=== PATIENT | male | born 1975 | race Caucasian/White ===

== ENCOUNTER 2021-08-21 20:55 | Emergency (ER) | payer BC, SELFPAY ==
[2021-08-21 20:57] VITALS: BP 149/90; PULSE 109; RESP 18; TEMP 36.1; O2SAT 97
[2021-08-21 21:26] LABS: Basophils Percent Auto 0.4 % (0.2-1.2); Eosinophils Absolute Auto 0.2 K/mm3 (0-0.3); Eosinophils Percent Auto 1.8 % (0-4.4); Hematocrit 45.2 % (42.0-52.0); Hemoglobin 15.4 g/dL (14.0-18.0); Immature Granulocyte Absolute 0.02 K/mm3 (0.00-0.031); Immature Granulocyte Percent A 0.2 % (0-0.5); Lymphocytes Absolute Auto 2.56 K/mm3 (0.9-3.2); Lymphocytes Percent Auto 24.9 % (18.3-44.2); Mean Corpuscular HGB Conc 34.1 g/dl (32-36); Mean Corpuscular Hemoglobin 31.3 pg (26-34); Mean Corpuscular Volume 91.9 fl (80-100); Mean Platelet Volume 8.9 fl (7.4-10.4); Monocytes Absolute Auto 0.7 K/mm3 (0.1-0.6); Monocytes Percent Auto 6.4 % (2.6-8.5); Neutrophils Absolute Auto 6.8 K/mm3 (1.3-6.7); Neutrophils Percent Auto 66.3 % (45.5-73.1); Platelet Count Result 246 k/mm3 (150-375); Red Blood Count 4.92 M/mm3 (4.6-6.20); Red Cell Distribution Width 13.1 % (11.5-14.5); White Blood Count 10.3 K/mm3 (4.5-10.0)
[2021-08-21] MEDS: SODIUM CHLORIDE 0.9% IV 1,000 ML 999 ML IV CONT (21:29)
[2021-08-21] MEDS: CLINDAMYCIN 600 MG/D5W 50 ML 600 MG/50 ML PIGGYBACK 100 MG IVPB (21:35)
[2021-08-21 21:38] VITALS: BP 101/54; PULSE 101; RESP 17; TEMP 37.6; O2SAT 97
[2021-08-21 21:38] LABS: Anion Gap 10 mmol/L (8-16); Blood Urea Nitrogen 10 mg/dL (9-20); Calcium 8.7 mg/dL (8.4-10.2); Carbon Dioxide 23 mmol/L (22-30); Chloride 101 mmol/L (98-107); Estimated CRCL calculation 133 ml/min; Estimated Glomerular Filt Rate > 60; Glucose 96 mg/dL (65-110); Potassium 3.5 mmol/L (3.4-5.0); Sodium 134 mmol/L (137-145)
--- NOTE | 2021-08-21 21:39 | ED.SKABFB ---
HPI - Skin/Abscess/Foreign Bdy General Chief complaint: Skin/Abscess/Foreign Body Stated complaint: bite to right arm Time Seen by Provider: 08/21/21 21:05 Source: patient Mode of arrival: ambulatory Limitations: no limitations History of Present Illness HPI narrative: Patient is a 46-year-old male complaining of redness and swelling in the right elbow x1 week. Patient states that pus came out in the area today. Patient cannot recall if it was a bug bite or a scratch that caused it. Patient denies any fever or chills. Patient denies any IV drug use. Related Data Allergies Allergy/AdvReac Type Severity Reaction Status Date / Time No Known Allergies Allergy Unknown Verified 08/21/21 21:06 Review of Systems Review of Systems: All systems reviewed & are unremarkable except as noted in HPI and below Constitutional: Constitutional: Denies body ache(s), Denies chills, Denies excessive sweating, Denies fatigue, Denies fever(s), Denies headache(s), Denies lethargy, Denies malaise, Denies weakness and Denies weight loss Eyes: Eyes: Denies blurry vision, Denies change in vision and Denies loss of vision ENT: Denies dizziness, Denies ear discharge, Denies headache(s), Denies lip swelling, Denies epistaxis, Denies nasal congestion, Denies neck pain, Denies throat swelling and Denies tongue swelling Cardiovascular: Cardiovascular: Denies chest pain, Denies chest pain at rest, Denies chest pain with activity, Denies diaphoresis, Denies rapid heart rate, Denies edema, Denies irregular heart rhythm, Denies lightheadedness, Denies palpitations, Denies dyspnea and Denies dyspnea on exertion Respiratory: Respiratory: Denies chest congestion, Denies cough, Denies hemoptysis, Denies dyspnea and Denies dyspnea on exertion Gastrointestinal: Gastrointestinal: Denies abdominal pain, Denies melena, Denies hematochezia, Denies diarrhea, Denies nausea, Denies vomiting and Denies hematemesis Musculoskeletal: Musculoskeletal: Denies abnormal gait, Denies deformity, Denies joint swelling, Denies limited range of motion, Denies neck pain and Denies numbness Neurologic: Denies Abnormal speech present, Denies abnormal gait, Denies confusion, Denies dizziness, Denies headache(s), Denies focal weakness, Denies loss of vision, Denies numbness, Denies Other visual disturbances, Denies Sensory deficit (Neuro) and Denies weakness Psychiatric: Psychiatric: Denies confusion, Denies depression, Denies auditory hallucinations, Denies homicidal ideation and Denies suicidal ideation Endocrine: Endocrine: Denies cold intolerance, Denies excessive sweating, Denies fatigue, Denies heat intolerance and Denies palpitations Hematologic/Lymphatic: Hematologic/Lymphatic: Denies easy bleeding and Denies easy bruising Allergic/Immunologic: Allergic/Immunologic: Denies lip swelling, Denies throat swelling and Denies tongue swelling PMFSH Comments Past medical history: None Family history: None Social history: Positive for smoker, occasional EtOH use, no drug use Exam Const: General: cooperative, healthy appearing, comfortable, no acute distress, well developed, alert and awake; No confusion Orientation/consciousness: oriented to person, oriented to place, oriented to time, patient oriented x3 and No confusion Limitations: no limitations HENMT: Head: normal to inspection, normocephalic and atraumatic Ears: hearing grossly normal bilaterally, TM normal on the right and TM normal on the left General nose exam: Normal external nose present, Normal nares present and No nasal discharge present Face and sinus: normal facial exam Mouth: Yes Normal oral and palatal mucosa present, Yes lip normal, Yes tongue normal and Yes oropharynx normal Throat: posterior oropharynx normal, tonsils normal and uvula midline Eyes: General: appearance normal, both eyes and all related structures Pupils: Equal, round and reactive pupils present EOM: EOMs intact bilaterally Neck: Neck: normal visual inspe
--- NOTE | 2021-08-21 23:00 | PC.NURSE ---
EDP Dr Villegas at bedside for I&D of abscess to right forearm.
[2021-08-21 23:15] VITALS: BP 116/81; PULSE 71; RESP 18; O2SAT 99
== END 2021-08-21 23:15 | disposition home or self-care (01) ==
PROVIDERS: Emergency Provider Emergency Medicine
DX: L02.413 Cutaneous abscess of right upper limb (principal)
CPT/HCPCS: 10061; 36415; 80048; 85025; 96365; 99284; J7030

== ENCOUNTER 2022-02-13 19:11 | Emergency (ER) | payer BC, SELFPAY ==
--- NOTE | ~2022-02-13 | XR_ITS ---
EXAMINATION: XR forearm LT 2V DATE: 02/13/2022 20:07 INDICATION: Left forearm injury and pain. TECHNIQUE: 2 views of left forearm were obtained. COMPARISON: None. FINDINGS: Bone alignment is normal. No fracture. Joint spaces are normal. No elbow joint effusion. Th ere is an enthesophyte at olecranon. There is dorsal forearm soft tissue swelling. IMPRESSION: 1. No fracture. Reviewed, dictated and finalized at location A. IMPRESSION: 1. No fracture.
[2022-02-13 19:20] VITALS: BP 165/97; PULSE 110; RESP 18; TEMP 36.6; O2SAT 98
[2022-02-13] MEDS: KETOROLAC 30 MG/ML VIAL (*BKC) IM (21:44)
--- NOTE | 2022-02-14 02:35 | ED.UPPEXIN ---
HPI - Extremity Injury (Upper) General Chief Complaint: Extremity Injury, Upper Stated Complaint: fall- left arm pain Time Seen by Provider: 02/13/22 21:13 History of Present Illness HPI narrative: 46-year-old male who states that he was stepping but missed, fell onto his left arm, is endorsing pain in the left forearm and elbow, no numbness or tingling or weakness anywhere, his tetanus shot is up-to-date. No injury or pain anywhere else. Related Data Allergies Allergy/AdvReac Type Severity Reaction Status Date / Time No Known Allergies Allergy Unknown Verified 02/13/22 19:23 Review of Systems Review of Systems: All systems reviewed & are unremarkable except as noted in HPI and below Exam Narrative: EXAMINATION OF ORGAN SYSTEMS/BODY AREAS: Constitutional: Vital signs per nursing GENERAL: Appears slightly uncomfortable HEAD: Normal with no signs of head trauma. EYES: EOMI, conjunctiva normal ENT: Hearing grossly intact LUNGS: Nonlabored breathing. HEART: [Regular rate and rhythm] ABD: Nondistended EXT: pain on flexion/extension of the left elbow, tenderness to palpation of elbow and forearm on left SKIN: Small abrasions to the left arm NEURO: [Alert and oriented x 3. No gross focal sensory or strength deficits, NVI.] PSYCH: Normal affect Course Course Emergency Course: 46-year-old male presents here with trauma to the left arm and pain, vital signs initially notable for tachycardia, exam shows tenderness palpation at the forearm and elbow with hematoma, but otherwise soft compartments, neurovascularly intact, no obvious deformity, x-ray here shows no fracture of the forearm or elbow, patient is reassured, tetanus is already up-to-date, he is given pain medication and can follow-up primary care doctor improved Vital Signs Vital signs: Vital Signs Temperature 97.8 F 02/13/22 19:20 Pulse Rate 110 H 02/13/22 19:20 Respiratory Rate 18 02/13/22 19:20 Blood Pressure 165/97 H 02/13/22 19:20 Pulse Oximetry 98 02/13/22 19:20 Temperature 97.8 F 02/13/22 19:20 Pulse Rate 110 H 02/13/22 19:20 Respiratory Rate 18 02/13/22 19:20 Blood Pressure 165/97 H 02/13/22 19:20 Pulse Oximetry 98 05/12/22 19:20 Discharge Plan Discharge Clinical Impression: Forearm injury Instructions: Contusion in Adults (ED) Additional Instructions: Keep icing your injury, take Motrin and Tylenol as needed for pain, follow-up with your doctor. Prescriptions: No Action doxycycline hyclate 100 mg capsule 100 mg PO BID Qty: 20 RF: 0 Follow-up/Referrals: PHYSICIAN,SANITATION TANK WASHER [Primary Care Provider] - Time of Disposition: 21:43
== END 2022-02-13 22:14 | disposition home or self-care (01) ==
LOC: ANHED 21:58
PROVIDERS: Emergency Provider Emergency Medicine
DX: S59.912A Unspecified injury of left forearm, initial encounter (principal); W18.39XA Other fall on same level, initial encounter
CPT/HCPCS: 73090; 96372; 99283; J1885

== ENCOUNTER 2022-04-18 16:56 | Emergency (ER) | payer BC, SELFPAY ==
--- NOTE | 2022-04-18 17:22 | PC.NURSE ---
pt called for triage. not found in lobby.
--- NOTE | 2022-04-18 17:46 | PC.NURSE ---
pt called for triage. not found in lobby.
== END 2022-04-18 17:50 | disposition left against medical advice (07) ==
DX: Z53.21 Procedure and treatment not carried out due to patient leaving prior to being seen by health care provider (principal)
CPT/HCPCS: 99199

== ENCOUNTER 2022-06-06 14:09 | Emergency (ER) | payer BC, SELFPAY ==
[2022-06-06 14:11] VITALS: BP 120/85; PULSE 108; RESP 14; TEMP 36.7; O2SAT 100
--- NOTE | 2022-06-06 15:05 | ED.EXTPRO ---
HPI - Extremity Problem General Chief complaint: Extremity Problem,Nontraumatic Stated complaint: bite to elbow Time Seen by Provider: 06/06/22 14:45 History of Present Illness HPI Narrative: Patient is a 47-year-old male with no past medical history presenting with a bump on his left arm. Patient states that he has had several pimples on his left elbow for the last week. States that he has popped them multiple times. Patient states that over the last day and a half, one of the pimples has continued to swell and now looks like a small golf ball. Denies difficulty or pain with ROM. Reports mild purulent drainage. States he is concerned that it started as a spider bite. Denies fevers or chills, chest pain, shortness of breath, abdominal pain, nausea or vomiting, back pain, leg swelling. Related Data Allergies Allergy/AdvReac Type Severity Reaction Status Date / Time No Known Allergies Allergy Unknown Verified 02/13/22 19:23 Review of Systems Review of Systems: All systems reviewed & are unremarkable except as noted in HPI and below Exam Narrative: GENERAL: Well-appearing, well-nourished, and in no acute distress. HEAD: Normocephalic, atraumatic. EYES: PERRLA and EOMI. ENT: Nares clear, no rhinorrhea or epistaxis. Mucous membranes moist. NECK: Supple. CHEST: Clear to auscultation. No respiratory distress. HEART: Regular rate and rhythm. No murmur heard. Normal peripheral pulses. ABDOMEN: Soft, nontender, nondistended, normal active bowel sounds. EXTREMITIES: Normal range of motion. No edema. L elbow extension and flexion intact; no sensory deficits, radial pulse 2+ SKIN: 3 cm abscess over lateral left elbow; no surrounding erythema, + fluctuance NEURO: No focal deficits. Alert and oriented x3. PSYCH: Normal mood and affect. Course Course Emergency Course: The patient is a 47-year-old male presenting with left arm abscess. Vitals within normal limits. Patient is well-appearing and in no acute distress. Exam is remarkable for the above. Concerning for olecranon bursitis with an overlying cellulitis. Very small punctate areas of mild purulence are noted. Left bursa was drained by needle aspiration with subsequent serosanguineous fluid. Patient reports improvement in his pain following drainage. Patient given a dose of antibiotics here and provided with 2 weeks of antibiotics. Advise close follow-up with orthopedics and primary care. Strict return precautions were given concerning worsening infectious symptoms and signs of septic arthritis. Patient voiced understanding and is agreeable with plan. Discharged in stable condition. Vital Signs Vital signs: Vital Signs Temperature 98.0 F 06/06/22 14:11 Pulse Rate 108 H 06/06/22 14:11 Respiratory Rate 14 06/06/22 14:11 Blood Pressure 120/85 06/06/22 14:11 Pulse Oximetry 100 06/06/22 14:11 Oxygen Delivery Room Air 06/06/22 14:11 Temperature 98.0 F 06/06/22 14:11 Pulse Rate 90 06/06/22 17:01 Respiratory Rate 18 06/06/22 17:01 Blood Pressure 155/90 H 06/06/22 17:01 Pulse Oximetry 98 06/06/22 17:01 Oxygen Delivery Room Air 06/06/22 14:11 Procedures Bursa Procedures Bursa #1: Date: 06/06/22 Time: 14:00 Location: L bursa Side of body: left Site of Procedure: olecranon bursa Antisepsis Used: Povidone-Iodine1% Local Anesthetic: lidocaine 1% Fluid obtained (mL): 10 Fluid Type: clear Patient Tolerated Procedure: well Complications: none Discharge Plan Discharge Clinical Impression: Olecranon bursitis, left elbow, Cellulitis Patient Disposition: Home, Self-Care Condition: Stable Instructions: Antibiotic Form, Cellulitis (ED), Elbow Bursitis (ED) Additional Instructions: Please follow-up with orthopedics Prescriptions: New sulfamethoxazole-trimethoprim [Bactrim DS] 800-160 mg tablet 2 tablet PO Q12H 14 Days Qty: 56 0RF No Action dox
[2022-06-06] MEDS: ACETAMINOPHEN 500 MG TABLET 1000 MG PO (16:34)
[2022-06-06] MEDS: SULFAMETHOXAZOLE/TRIMETHOPRIM 800/160 MG DS TABLET 1 TAB PO (16:35)
[2022-06-06] MEDS: CEPHALEXIN 500 MG CAPSULE PO (16:35)
[2022-06-06 17:01] VITALS: BP 155/90; PULSE 90; RESP 18; O2SAT 98
== END 2022-06-06 17:01 | disposition home or self-care (01) ==
PROVIDERS: Emergency Provider Emergency Medicine
DX: M70.22 Olecranon bursitis, left elbow (principal); L03.114 Cellulitis of left upper limb
CPT/HCPCS: 23931; 99283; A9270

== ENCOUNTER 2022-06-13 14:00 | Inpatient (IN) | payer BC, SELFPAY ==
--- NOTE | ~2022-06-13 | XR_ITS ---
XR elbow LT min 3V DATE: 06/13/2022 17:29 INDICATION: Pain, swelling. Puncture wound at posterior left elbow. History of abscess. TECHNIQUE: 4 views COMPARISON: None FINDINGS: There is very prominent dorsal soft tissue swelling at the elbow, suggesting olecranon burs itis or hematoma. There is a very prominent spur of the olecranon process, measuring up to 8 mm AP di mension, 14 mm length. No fracture or dislocation, periosteal reaction or bone destruction. IMPRESSION: Very prominent dorsal soft tissue swelling, which may be due to olecranon bursitis or hem atoma is very prominent dorsal olecranon process spur Reviewed, dictated and finalized at location A. IMPRESSION: Very prominent dorsal soft tissue swelling, which may be due to ole cranon bursitis or hematoma is very prominent dorsal olecranon process spur
[2022-06-13 14:14] VITALS: BP 160/107; PULSE 109; RESP 20; TEMP 36.6; O2SAT 100
--- NOTE | 2022-06-13 17:11 | ED.UPPEXIN ---
HPI - Extremity Injury (Upper) General Chief Complaint: Extremity Injury, Upper Stated Complaint: left elbow pain Time Seen by Provider: 06/13/22 16:35 History of Present Illness HPI narrative: 47-year-old male presents to the emergency room with worsening left elbow pain. Patient was seen here 1 week ago for olecranon bursitis, he states it was drained at that time. Patient was put on 2 oral antibiotics after a dose of IV antibiotics. Patient states the elbow has become more swollen, erythematous, painful and has been draining. Related Data Allergies Allergy/AdvReac Type Severity Reaction Status Date / Time No Known Allergies Allergy Unknown Verified 06/13/22 15:57 Review of Systems Review of Systems: CONSTITUTIONAL: Denies fever, chills, or sweats. EYES: Denies visual changes, redness, or discharge. ENT: Denies rhinorrhea, congestion, sore throat, or otalgia. CARDIOVASCULAR: Denies chest pain, palpitations, or edema. RESPIRATORY: Denies cough or dyspnea. GASTROINTESTINAL: Denies abdominal pain, nausea, vomiting, or diarrhea. GENITOURINARY: Denies dysuria or hematuria. SKIN: Denies rash or itching. MUSCULOSKELETAL: Reports right elbow pain NEUROLOGIC: Denies headache, numbness, dizziness, or weakness. PSYCHIATRIC: Denies anxiety or depression. Exam Narrative: GENERAL: Well-appearing, well-nourished, no physical limitations, and in no acute distress. HEAD: Normocephalic, atraumatic. EYES: Conjunctivae normal, PERRLA and EOMI. CHEST: Clear to auscultation. No respiratory distress. No wheezes rales or rhonchi. No tenderness. HEART: Regular rate and rhythm. No murmur heard. Normal peripheral pulses. EXTREMITIES: Left elbow: Range of motion limited with extension due to discomfort with no areas of crepitus SKIN: Left elbow: Large area of erythematous fluctuance over the olecranon that is tender to palpation and warm. No obvious drainage. Overlying ulceration. No evidence of lymphangitic spread NEURO: No focal deficits. Alert and oriented x3. MAEW. CN's II-XI intact bilaterally, normal gait PSYCH: Cooperative. Normal mood and affect. Course Course Emergency Course: Discussed case with Dr. Nina. He recommends observation admission for IV antibiotics and possible I&D. Vital Signs Vital signs: Vital Signs Temperature 36.6 C 06/13/22 14:14 Pulse Rate 109 H 06/13/22 14:14 Respiratory Rate 06/13/22 14:14 Blood Pressure 160/107 H 06/13/22 14:14 Pulse Oximetry 100 06/13/22 14:14 Oxygen Delivery Room Air 06/13/22 14:14 Temperature 36.6 C 06/13/22 14:14 Pulse Rate 109 H 06/13/22 14:14 Respiratory Rate 06/13/22 14:14 Blood Pressure 160/107 H 06/13/22 14:14 Pulse Oximetry 100 06/13/22 14:14 Oxygen Delivery Room Air 06/13/22 14:14 Procedures Bursa Procedures Bursa #1: Date: 06/13/22 Time: 18:54 Location: left elbow Time Out Performed: Yes Side of body: left Site of Procedure: olecranon bursa XRAY Obtained: normal Antisepsis Used: Povidone-Iodine1% Local Anesthetic: lidocaine 1% and with epi Amount of anesthesia used (mL): 2 Fluid obtained (mL): 11 Fluid Type: clear, bloody and other (serosanguineous) Patient Tolerated Procedure: well Discharge Plan Discharge Clinical Impression: Septic bursitis Patient Disposition: Still a Patient Condition: Stable Instructions: Antibiotic Form Prescriptions: No Action doxycycline hyclate 100 mg capsule 100 mg PO BID Qty: 20 0RF sulfamethoxazole-trimethoprim [Bactrim DS] 800-160 mg tablet 2 tablet PO Q12H 14 Days Qty: 56 0RF Follow-up/Referrals: PHYSICIAN,GRAPPLE OPERATOR [Primary Care Provider] - Time of Disposition: 18:57
[2022-06-13] MEDS: HYDROmorphone HCL INJ (*CRX) 1 MG/ML SYR 0.5 MG IV PUSH ×2 (17:38→20:43)
[2022-06-13 17:53] LABS: Basophils Percent Auto 0.3 % (0.2-1.2); Eosinophils Absolute Auto 0.1 K/mm3 (0-0.3); Eosinophils Percent Auto 1.1 % (0-4.4); Hematocrit 46.2 % (42.0-52.0); Hemoglobin 15.4 g/dL (14.0-18.0); Immature Granulocyte Absolute 0.04 K/mm3 (0.00-0.031); Immature Granulocyte Percent A 0.4 % (0-0.5); Lymphocytes Percent Auto 18.6 % (18.3-44.2); Mean Corpuscular HGB Conc 33.3 g/dl (32-36); Mean Corpuscular Hemoglobin 30.7 pg (26-34); Mean Platelet Volume 8.9 fl (7.4-10.4); Monocytes Absolute Auto 0.7 K/mm3 (0.1-0.6); Neutrophils Absolute Auto 6.6 K/mm3 (1.3-6.7); Neutrophils Percent Auto 71.6 % (45.5-73.1); Platelet Count Result 313 k/mm3 (150-375); Red Blood Count 5.02 M/mm3 (4.6-6.20); Red Cell Distribution Width 13.8 % (11.5-14.5); White Blood Count 9.2 K/mm3 (4.5-10.0)
[2022-06-13 18:06] LABS: Lactic Acid Reflex 0.8 mmol/L (0.7-2.0)
[2022-06-13 18:13] LABS: Alanine Aminotransferase 46 U/L (6-50); Albumin Level 4.3 g/dL (3.5-5.1); Alkaline Phosphatase 124 U/L (38-126); Anion Gap 12 mmol/L (8-16); Aspartate Amino Transferase 43 U/L (17-59); Bilirubin,Total 0.3 mg/dL (0.2-1.3); Blood Urea Nitrogen 11 mg/dL (9-20); Carbon Dioxide 25 mmol/L (22-30); Chloride 100 mmol/L (98-107); Estimated CRCL calculation 97 ml/min; Estimated Glomerular Filt Rate > 60; Glucose 105 mg/dL (65-110); Potassium 4.6 mmol/L (3.4-5.0); Sodium 137 mmol/L (137-145)
--- NOTE | 2022-06-13 19:00 | PM.IMHP ---
H&P: HPI History of Present Illness Date/Time: 06/13/22 19:00 Chief Complaint: Worsening left elbow pain and swelling. Narrative: This is a 47-year-old male with history of cellulitis who presented to the emergency department for evaluation of worsening left elbow pain and swelling. A little over week ago he noticed a white head on his left elbow that he popped with the return of a small amount of pus. He thought he saw to puncture joshi thus he assumes that he got bit by a spider. He was seen in the emergency department on 06/06/2022 for evaluation at which time he was diagnosed with bursitis and he was discharged home with Septra and doxycycline of which he states compliance. Unfortunately the elbow continues to swell and is more painful. It has also been draining serosanguineous fluid. Elbow x-ray today showed very prominent dorsal soft tissue swelling and the area was aspirated which yielded serosanguineous fluid which has been sent for culture. He is being admitted in this setting for IV antibiotics. Currently he has no specific complaints. He denies documented fever though he has had sweats and chills and suspects he probably has had a fever. He has been taking ibuprofen 200 mg as needed for pain and fever. His appetite has been okay without nausea and vomiting. No known history of MRSA. Review of Systems Review of Systems: Twelve systems were reviewed and are negative except for as per HPI. [facility] Past Medical History Medical History (Updated 06/14/22 @ 00:13 by Katy Ontiveros PA-C) Cellulitis Hodgkin lymphoma Diagnosed at the age of 15 status post chemotherapy and radiation to the neck and chest. Tobacco dependence Surgical History Surgical History (Updated 06/14/22 @ 00:09 by Katy Ontiveros PA-C) History of incision and drainage I&D of left thumb due to spider bite. History of lymph node biopsy History of tonsillectomy Family History Family History (Updated 06/14/22 @ 00:10 by Katy Ontiveros PA-C) Other Family history non-contributory Social History Social History (Updated 06/14/22 @ 00:10 by Katy Ontiveros PA-C) Social History: Surrogate medical decision maker: Rosaura Raza, significant other. Code status: Full code. Smoking packs per day: 1 Smoking cigarettes per day: 20.0 Years smoked: 1 Smoking pack-years: 1.00 Smoking status: Current every day smoker Tobacco type: cigarettes Alcohol intake: current Drinks per week: 1 Substance use: current Substance use type: marijuana Other substance usage details: 1-2 use/day Last use: 06/06/2022 Additional living arrangements comments: Lives in [place] with significant other. Additional occupation/education comments: Carpentry work. Spiritual care concerns: No Meds Home Medications and Allergies Home Medications Medication Instructions Recorded Confirmed Type doxycycline hyclate 100 mg capsule 100 mg PO BID #20 caps 08/21/21 06/13/22 Rx sulfamethoxazole 800 2 tablet PO Q12H soft tissue 06/06/22 06/13/22 Rx mg-trimethoprim 160 mg tablet infection 14 days #56 tabs (Bactrim DS) Allergies Allergy/AdvReac Type Severity Reaction Status Date / Time No Known Allergies Allergy Unknown Verified 06/13/22 15:57 Vital Signs Vital Signs - 24 hr 06/13/22 14:14 06/13/22 20:33 06/13/22 20:50 Temperature 97.8 F 98.4 F 97.3 F L Pulse Rate 109 H 104 H 107 H Respiratory Rate 20 16 16 Blood Pressure 160/107 H 193/97 H 139/99 H Pulse Oximetry 100 98 97 Oxygen Delivery Room Air 06/13/22 22:58 Temperature Pulse Rate Respiratory Rate Blood Pressure Pulse Oximetry Oxygen Delivery Room Air Exam Narrative: General: Nontoxic-appearing male sitting at the side of the bed in no distress. Weight: 127 kg. BMI: 36.9. HEENT: PERRL, EOMI. Sclera anicteric. Oral mucosa moist. Neck: Supple. Respiratory: Lungs are clear to auscultation bilaterally. Cardiovascular: Regula
[2022-06-13] MEDS: LIDO 1%/EPINEPHRINE 1:100,000 10 ML VIAL (19:17)
[2022-06-13] MEDS: cefTRIAXone 2 GM in SODIUM CHLORIDE 0.9% IV 100 ML 200 ML IVPB (19:26)
[2022-06-13 19:53] LABS: CRP 3.8 mg/dL (<1.0)
[2022-06-13 20:00] LABS: Erythrocyte Sedimentation Rate 13 mm/hr (0-20)
--- NOTE | 2022-06-13 20:13 | PC.NURSE ---
AT 2007 ON 06/13/2022 LAB CALLED AND REPORTED NO ORGANISMS SEEN IN LEFT ARM FLUID.
[2022-06-13 20:33] VITALS: BP 193/97; PULSE 104; RESP 16; TEMP 36.9; O2SAT 98
[2022-06-13 20:50] VITALS: BP 139/99; PULSE 107; RESP 16; TEMP 36.3; O2SAT 97; BMI 36.9
[2022-06-13 21:18] VITALS: BMI 36.9
--- NOTE | 2022-06-13 21:30 | ADMGEN ---
This patient, Yo Day, was admitted to 3 Med Surg Room 315-01. Patient/family oriented to hospital policies and general routines including ID bracelet, bed and alarms, visiting hours, pain management, procedures, bathroom and other care routines, personal items, smoking policy, room service/diet, and visiting hours. Information on how to activate the Rapid Response Team has been discussed. Patient/Family are encouraged to report perceived risks to care and to ask questions if they do not understand what they are told or what they should do.
--- NOTE | 2022-06-13 21:53 | PM.CNOR ---
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 This started about 10 days ago. He noticed a few pimples or spider bites over the olecranon area any pop them and then he started having swelling and severe pain. He was seen in the emergency room approximately 7 days ago and had the bursa aspirated of some brown fluid. We do not have any culture results of that. He was placed on doxycycline and Bactrim. 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 He is going to need to stop smoking at least for a while and he is going to need to rest from work if you expect this to resolve without complication. This was discussed. His pain redness and swelling has been getting worse progressively over the last week. His had some drainage but right now he does not have any drainage he has a very swollen olecranon bursa he has only been the elbow to about 90? and is very painful. He does have full extension. There is a 8 mm area of skin necrosis but it is not draining through this. There is no surrounding cellulitis fortunately has moderate tenderness over the swollen bursa with moderate erythema over the bursa itself. He has intact sensation in the left hand and a 2+ radial artery pulse. His C-reactive protein was elevated at 3.5. He had fluid from the ER drawn out and bursal fluid sent for culture. He is being started on vancomycin and ceftriaxone. I have discussed options with him. We discussed the option of just incising it in his hospital room. The other option is to taken the operating room incised this and thoroughly debrided and closed it loosely over a drain. The advantages of the surgical approaches that and has the potential to have this heal little bit faster a little bit lower risk of secondary infection since we are not leaving it packed open and the disadvantage of surgical treatment is it involves anesthetic some risk. He would like to proceed with surgery as he sees is getting worse and worse with each passing day we will try to put this on for tomorrow as discussed. 50 minutes were spent in total care of this patient today. History of Present Illness HPI Consult date: 06/13/22 Chief complaint: Septic Bursitis [facility] Social History Social History Smoking packs per day: 1 Smoking cigarettes per day: 20.0 Years smoked: 1 Smoking pack-years: 1.00 Smoking status: Current every day smoker Tobacco type: cigarettes Alcohol intake: current Drinks per week: 1 Substance use: current Substance use type: marijuana Other substance usage details: 1-2 use/day Last use: 06/06/2022 Spiritual care concerns: No Meds Home Medications and Allergies Home Medications Medication Instructions Recorded Confirmed Type doxycycline hyclate 100 mg capsule 100 mg PO BID #20 caps 08/21/21 Rx sulfamethoxazole 800 2 tablet PO Q12H soft tissue 06/06/22 Rx mg-trimethoprim 160 mg tablet infection 14 days #56 tabs (Bactrim DS) Allergies Allergy/AdvReac Type Severity Reaction Status Date / Time No Known Allergies Allergy Unknown Verified 06/13/22 15:57 Vital Signs Vital Signs - 24 hr 06/13/22 14:14 06/13/22 20:33 Temperature 36.6 C 36.9 C Pulse Rate 109 H 104 H Respiratory Rate 20 16 Blood Pressure 160/107 H 193/97 H Pulse Oximetry 100 98 Oxygen Delivery Room Air Results Labs Result Diagrams: 06/13/22 17:42 06/13/22 17:42 Labs: Abnormal lab results 06/13/22 06/13/22 Range/Units 17:42 17:42 Hitchcock # (Auto) 0.7 H (0.1-0.6) K/mm3 Abs Immat Gran (auto) 0.04 H (0.00-0.031) K/mm3 C-Reactive Protein 3.8 H (<1.0) mg/dL H & H 06/13/22
[2022-06-14] VITALS (13 sets, daily range): BP systolic 145–194; BP diastolic 76–95; PULSE 81–102; RESP 16–24; TEMP 36–36.6; O2SAT 92–100
[2022-06-14] MEDS: HYDROmorphone HCL INJ (*CRX) 1 MG/ML SYR 0.5 MG IV PUSH ×2 (01:04→13:23)
[2022-06-14 06:55] LABS: Hematocrit 45.1 % (42.0-52.0); Hemoglobin 14.8 g/dL (14.0-18.0); Mean Corpuscular HGB Conc 32.8 g/dl (32-36); Mean Corpuscular Hemoglobin 30.1 pg (26-34); Mean Corpuscular Volume 91.9 fl (80-100); Platelet Count Result 287 k/mm3 (150-375); Red Blood Count 4.91 M/mm3 (4.6-6.20); Red Cell Distribution Width 13.8 % (11.5-14.5); White Blood Count 7.8 K/mm3 (4.5-10.0)
[2022-06-14 07:12] LABS: Anion Gap 12 mmol/L (8-16); Blood Urea Nitrogen 11 mg/dL (9-20); Calcium 8.7 mg/dL (8.4-10.2); Carbon Dioxide 22 mmol/L (22-30); Chloride 104 mmol/L (98-107); Estimated CRCL calculation 115 ml/min; Estimated Glomerular Filt Rate > 60; Glucose 106 mg/dL (65-110); Potassium 4.8 mmol/L (3.4-5.0); Sodium 138 mmol/L (137-145)
--- NOTE | 2022-06-14 08:27 | WPDANESEPPF ---
Anes - Initial Pre Proc Eval Procedure: Operation Date: 06/14/22 09:30 Proposed Procedures p I&D Debride Upper Extremity(Left) - Moo Nina MD Date/Time: 06/14/22 08:27 Surgeon: Alli Stern MD Pre Op Diagnosis: Septic Bursitis Patient Data Age: 47 Gender: M Height: 1.85 m Weight: 127 kg Last Vital Signs Temp 36.6 C 06/14/22 06:00 Pulse 93 06/14/22 06:00 Resp 16 06/14/22 06:00 BP 157/83 H 06/14/22 06:00 Pulse Ox 98 06/14/22 06:00 O2 Del Method Room Air 06/13/22 22:58 Allergies Allergy/AdvReac Type Severity Reaction Status Date / Time No Known Allergies Allergy Unknown Verified 06/13/22 15:57 Home Medications Medication Instructions Recorded Confirmed Type doxycycline hyclate 100 mg capsule 100 mg PO BID #20 caps 08/21/21 06/13/22 Rx sulfamethoxazole 800 2 tablet PO Q12H soft tissue 06/06/22 06/13/22 Rx mg-trimethoprim 160 mg tablet infection 14 days #56 tabs (Bactrim DS) Laboratory Tests 06/13/22 06/13/22 06/13/22 17:42 17:42 17:42 WBC 9.2 K/mm3 K/mm3 (4.5-10.0) RBC 5.02 M/mm3 M/mm3 (4.6-6.20) Hgb 15.4 g/dL g/dL (14.0-18.0) Hct 46.2 % % (42.0-52.0) MCV 92.0 fl fl (80-100) MCH 30.7 pg pg (26-34) MCHC 33.3 g/dl g/dl (32-36) RDW 13.8 % % (11.5-14.5) Plt Count 313 k/mm3 k/mm3 (150-375) MPV 8.9 fl fl (7.4-10.4) Immature Gran % (Auto) 0.4 % % (0-0.5) Neut % (Auto) 71.6 % % (45.5-73.1) Lymph % (Auto) 18.6 % % (18.3-44.2) Brooks % (Auto) 8.0 % % (2.6-8.5) Eos % (Auto) 1.1 % % (0-4.4) Baso % (Auto) 0.3 % % (0.2-1.2) Lymph # (Auto) 1.70 K/mm3 K/mm3 (0.9-3.2) Brooks # (Auto) 0.7 K/mm3 H K/mm3 (0.1-0.6) Eos # (Auto) 0.1 K/mm3 K/mm3 (0-0.3) Baso # (Auto) 0.0 K/mm3 K/mm3 (0.0-0.1) Abs Immat Gran (auto) 0.04 K/mm3 H K/mm3 (0.00-0.031) Absolute Neuts (auto) 6.6 K/mm3 K/mm3 (1.3-6.7) Absolute Nucleated RBC 0.0 K/mm3 K/mm3 (0.0-0.012) Nucleated RBC % 0.0 % % (0.0-0.2) ESR Sodium 137 mmol/L mmol/L (137-145) Potassium 4.6 mmol/L mmol/L (3.4-5.0) Chloride 100 mmol/L mmol/L (98-107) Carbon Dioxide 25 mmol/L mmol/L (22-30) Anion Gap 12 mmol/L mmol/L (8-16) BUN 11 mg/dL mg/dL (9-20) Creatinine 1.20 mg/dL mg/dL (0.7-1.3) Estim Creat Clear Calc 97 ml/min ml/min Estimated GFR > 60 (59 - ) Glucose 105 mg/dL mg/dL (65-110) Lactic Acid 0.8 mmol/L mmol/L (0.7-2.0) Calcium 9.0 mg/dL mg/dL (8.4-10.2) Total Bilirubin 0.3 mg/dL mg/dL (0.2-1.3) AST 43 U/L U/L (17-59) ALT 46 U/L U/L (6-50) Alkaline Phosphatase 124 U/L U/L (38-126) C-Reactive Protein Total Protein 8.0 g/dL g/dL (6.3-8.2) Albumin 4.3 g/dL g/dL (3.5-5.1) 06/13/22 06/13/22 06/14/22 17:42 17:42 06:22 WBC 7.8 K/mm3 K/mm3 (4.5-10.0) RBC 4.91 M/mm3 M/mm3 (4.6-6.20) Hgb 14.8 g/dL g/dL (14.0-18.0) Hct 45.1 % % (42.0-52.0) MCV 91.9 fl fl (80-100) MCH 30.1 pg pg (26-34) MCHC 32.8 g/dl g/dl (32-36) RDW 13.8 % % (11.5-14.5) Plt Count 287 k/mm3 k/mm3 (150-375) MPV 9.0 fl fl (7.4-10.4) Immature Gran % (Auto) Neut % (Auto) Lymph % (Auto) Brooks % (Auto) Eos % (Auto) Baso % (Auto) Lymph # (Auto) Brooks # (Auto) Eos # (Auto) Baso # (Auto) Abs Immat Gran (auto) Absolute Neuts (auto) Absolute Nucleated RBC Nucleated RBC % ESR 13 mm/hr
[2022-06-14] MEDS: LACTATED RINGERS 1,000 ML 30 ML IV CONT (08:30)
--- NOTE | 2022-06-14 08:47 | WPDHPUPDATE1 ---
History and Physical Update Update Date/Time: 06/14/22 08:47 History and Physical has been reviewed, including an updated exam of the patient. There are NO changes in the patient's condition. Risks, benefits, and alternatives have been discussed and questions answered. Patient agrees to proceed with procedure.
[2022-06-14] MEDS: ceFAZolin SODIUM 1 GM VIAL (09:28)
--- NOTE | 2022-06-14 09:50 | P.OP_ITS ---
Procedure Note - Detailed Date of Procedure 06/14/22 Pre-op Diagnosis Septic Bursitis left elbow Post-op Diagnosis Same Procedure Performed Open debridement left elbow septic olecranon bursitis Surgeon Moo Nina MD [employer] Description of Procedure Patient was brought to the operating room and general anesthesia was administered. He has been receiving ceftriaxone and vancomycin for IV antibiotics. The area of white skin over the proximal aspect of the tip the olecranon was about 1 cm in diameter white macerated skin. The arm was scrubbed with a chlorhexidine cloth at the beginning and after drying we prepped with DuraPrep except for the area of macerated necrotic skin which we prep with Be tadine paint. After prep and drape the tourniquet was elevated 250 mmHg. We made a a 1-1/2 inch longitudinal incision about 1 cm of incision extending proximal to the area of skin edge necrosis 2 cm distal. There was purulent fluid under pressure that expressed and we did send a swab of this for culture. The abscess cavity underneath was much larger approximately 3 in in length and 2-1/2 inches in width. There was some necrotic bursal debris and this was carefully removed with a needle-nose rongeur followed by insertion of 4 x 4 sponges to scrape the bursal lining on its deep and subcutaneous surfaces and we repeated this process until no additional debris was noted. We debrided the area of skin edge necrosis that was about a cm diameter. The subcutaneous tissue at the floor of this area of skin edge necrosis looked to be viable and was left alone. Tourniquet was released and the viability of the remaining tissue confirmed and the wound irrigated with Ancef solution and loosely closed with 4-0 nylon sutures leaving the central area of necrosis approximated but not sutured to allow drainage. A soft bulky dressing was applied the patient transferred postop regarding stable condition. No known complications.
[2022-06-14] MEDS: fentaNYL CITRATE INJ (*CRX) 100 MCG/2 ML VIAL 25 MCG IV PUSH ×4 (10:05→10:38)
[2022-06-14] MEDS: LABETALOL HCL INJ 100 MG/20 ML VIAL IV PUSH ×2 (10:31→10:44)
--- NOTE | 2022-06-14 11:19 | PC.NURSE ---
This patient, Yo Day, was received from PACU on 06/14/22 at 1057. Patient/family oriented to unit policies and routines
--- NOTE | 2022-06-14 12:10 | PM.IMPN ---
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 Wound and blood culture are pending, patient is being treated with ceftriaxone and Vancomycin for possible left septic olecranon bursa. will CPM and follow up on culture and further recommendation to follow. (2) Tobacco dependence: Code(s): F17.200 - Nicotine dependence, unspecified, uncomplicated Status: Acute Plan The patient presented to the emergency department today for evaluation of worsening left elbow pain, swelling, and redness. Over a week ago he noticed a white head on the elbow which he popped and he thought he saw 2 puncture wounds thus he assumes this was a spider bite. He was prescribed Septra and doxycycline about a week ago and despite being compliant with those medications his symptoms continued to get worse. Imaging today showed a large amount of swelling and he did have a needle aspiration which yielded serosanguineous fluid. G stain, cell count, and culture pending at this time. We will continue with empiric ceftriaxone and vancomycin. Analgesics available as needed. Dr. Nina has been consulted for possible debridement if deemed necessary and his input is appreciated. Smoking cessation is encouraged. Patient denies the need for nicotine patch. 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 Wound and blood culture are pending, patient is being treated with ceftriaxone and Vancomycin for possible left septic olecranon bursa. will CPM and follow up on culture and further recommendation to follow. Review of Systems Review of Systems: Twelve systems were reviewed and are negative except for as per HPI. Exam Narrative: Patient is comfortable, NAD HEENT: eyes are clear and none icteric LUNGS: normal respiratory effort ABD: not distended Lower extremities: no edema MS: left arm surgical dressing difficult to flex and extend at the joint, able to make a fist and extend and flex his wrist SKIN: nonjaundiced Neuro: grossly intact. Objective Data Vital Signs Vital Signs: Vital Signs - 24 hr 06/13/22 14:14 06/13/22 20:33 06/13/22 20:50 Temperature 97.8 F 98.4 F 97.3 F L Pulse Rate 109 H 104 H 107 H Respiratory Rate 20 16 16 Blood Pressure 160/107 H 193/97 H 139/99 H Pulse Oximetry 100 98 97 Oxygen Delivery Room Air Oxygen Flow Rate 06/13/22 22:58 06/14/22 06:00 06/14/22 08:25 Temperature 97.9 F 97.8 F Pulse Rate 93 92 Respiratory Rate 16 16 Blood Pressure 157/83 H 165/83 H Pulse Oximetry 98 96 Oxygen Delivery Room Air Room Air Oxygen Flow Rate 06/14/22 09:45 06/14/22 10:00 06/14/22 10:15 Temperature 97 F L Pulse Rate 87 87 88 Respiratory Rate 24 H 16 16 Blood Pressure 164/79 H 194/95 H 176/76 H Pulse Oximetry 99 100 95 Oxygen Delivery Simple Face Mask Simple Face Mask Simple Face Mask Oxygen Flow Rate 8 8 8 06/14/22 10:31 06/14/22 10:30 06/14/22 10:44 Temperature Pulse Rate 90 90 85 Respiratory Rate 16 Blood Pressure
[2022-06-14] MEDS: ACETAMINOPHEN 500 MG TABLET 1000 MG PO ×3 (13:23→23:39)
[2022-06-14] MEDS: SENNA/DOCUSATE SODIUM TABLET 2 TAB PO (17:55)
[2022-06-14] MEDS: oxyCODONE HCL (*CRX) 5 MG TAB IR PO ×2 (17:56→23:38)
[2022-06-14] MEDS: cefTRIAXone 2 GM in SODIUM CHLORIDE 0.9% IV 100 ML 200 ML IVPB (18:01)
[2022-06-14] MEDS: ENOXAPARIN 40 MG/0.4 ML SYRINGE SUB-Q (20:55)
[2022-06-15] MEDS: oxyCODONE HCL (*CRX) 5 MG TAB IR PO ×2 (05:30→11:01)
[2022-06-15] MEDS: ACETAMINOPHEN 500 MG TABLET 1000 MG PO ×2 (05:30→11:02)
[2022-06-15 06:00] VITALS: BP 141/78; PULSE 89; RESP 16; TEMP 36.1; O2SAT 96
[2022-06-15] MEDS: polyethylene glycoL 3350 17 GM POWD.PACK PO (08:31)
[2022-06-15] MEDS: SENNA/DOCUSATE SODIUM TABLET 2 TAB PO (08:31)
--- NOTE | 2022-06-15 08:47 | WPDANESPN ---
Anes - Prog Note Post-Op Date/Time: 06/15/22 08:47 Cardiovascular status: normal Respiratory status: normal Airway patency: baseline Mental status: baseline Post-Op hydration status: normal Vital Signs: Last Vital Signs Temp 36.1 C L 06/15/22 06:00 Pulse 89 06/15/22 06:00 Resp 16 06/15/22 06:00 BP 141/78 H 06/15/22 06:00 Pulse Ox 96 06/15/22 06:00 O2 Del Method Room Air 06/14/22 20:35 O2 Flow Rate 8 06/14/22 10:15 Pain Score (VAS): 10/14 I/O: Intake & Output 06/14/22 06/15/22 06/15/22 23:59 07:59 15:59 Intake Total 1320 440 Balance 1320 440 Laboratory Tests 06/14/22 06:22 06/14/22 06:22 Microbiology 06/13/22 18:55 Arm Left Anaerobic Culture - Preliminary 06/13/22 18:55 Arm Left Aerobic Culture - Preliminary 06/13/22 19:07 Blood Blood Culture - Preliminary 06/13/22 19:07 Blood Blood Culture - Preliminary Post-procedural complaints: none Patient Feedback: Patient satisfied with anesthetic care.
[2022-06-15 09:34] LABS: Hematocrit 46.5 % (42.0-52.0); Hemoglobin 15.2 g/dL (14.0-18.0); Mean Corpuscular HGB Conc 32.7 g/dl (32-36); Mean Corpuscular Hemoglobin 30.3 pg (26-34); Mean Corpuscular Volume 92.8 fl (80-100); Mean Platelet Volume 8.7 fl (7.4-10.4); Platelet Count Result 296 k/mm3 (150-375); Red Blood Count 5.01 M/mm3 (4.6-6.20); Red Cell Distribution Width 13.6 % (11.5-14.5); White Blood Count 10.7 K/mm3 (4.5-10.0)
[2022-06-15 09:46] LABS: Anion Gap 15 mmol/L (8-16); Blood Urea Nitrogen 11 mg/dL (9-20); Calcium 8.4 mg/dL (8.4-10.2); Carbon Dioxide 24 mmol/L (22-30); Chloride 102 mmol/L (98-107); Estimated CRCL calculation 114 ml/min; Estimated Glomerular Filt Rate > 60; Glucose 141 mg/dL (65-110); Potassium 3.7 mmol/L (3.4-5.0); Sodium 141 mmol/L (137-145)
[2022-06-15 09:51] LABS: Vancomycin Trough 8.9 ug/mL (10.0-20.0)
--- NOTE | 2022-06-15 12:18 | PM.IMPN ---
Progress Note: A&P Assessment and Plan (1) Septic olecranon bursitis of left elbow: Code(s): M71.122 - Other infective bursitis, left elbow Status: Acute Assessment and Plan: status post I&D surgery following continue IV antibiotics overall he is feeling better patient is wanting to leave AMA despite us trying to convince him to stay until cultures have been completed. If he leaves AMA well I will give a prescription for antibiotics but again I have nothing to base may antibiotic decision off of since the cultures have not been completed. Patient is fully aware of risk of having worsening in of his cellulitis and Septic bursitis. (2) Tobacco dependence: Code(s): F17.200 - Nicotine dependence, unspecified, uncomplicated Status: Acute Plan hopefully the patient will stay but he leaves AMA I did write a prescription for antibiotics. again patient is fully aware risk of leaving without having the appropriate antibiotic coverage. Subjective Date/time seen: 06/15/22 12:18 doing ok wanting to leave ama Exam Narrative: Patient is comfortable, NAD HEENT: eyes are clear and none icteric LUNGS: normal respiratory effort ABD: not distended Lower extremities: no edema MS: left arm surgical dressing difficult to flex and extend at the joint, able to make a fist and extend and flex his wrist SKIN: nonjaundiced Neuro: grossly intact. Objective Data Vital Signs Vital Signs: Vital Signs - 24 hr 06/14/22 12:39 06/14/22 20:35 06/14/22 20:39 Temperature 97.2 F L 97.5 F L Pulse Rate 90 90 102 H Respiratory Rate 20 20 18 Blood Pressure 153/82 H 160/81 H Pulse Oximetry 92 92 98 Oxygen Delivery Room Air 06/15/22 06:00 06/15/22 08:00 Temperature 97.0 F L Pulse Rate 89 Respiratory Rate 16 Blood Pressure 141/78 H Pulse Oximetry 96 Oxygen Delivery Room Air Intake/Output Intake/Output: Intake & Output 06/12/22 06/13/22 06/14/22 06/15/22 23:59 23:59 23:59 23:59 Intake Total 100 3510 440 Balance 100 3510 440 Meds/Results Medications: Active Medications Generic Name Dose Route Start Last Admin Trade Name Freq PRN Reason Stop Dose Admin Acetaminophen 1,000 mg 06/14/22 12:00 06/15/22 11:02 Acetaminophen 500 Mg Tablet PO 1,000 mg Q6HR MIGUEL ANGEL Administration Enoxaparin Sodium 40 mg 06/14/22 21:00 06/14/22 20:55 Enoxaparin 40 Mg/0.4 Ml Syringe SUB-Q 40 mg DAILY@2100 MIGUEL ANGEL Administration Hydromorphone HCl 0.5 mg 06/13/22 18:33 06/14/22 13:23 Hydromorphone Hcl Inj (*Crx) 1 Mg/Ml Syr IV PUSH 0.5 mg Q4H PRN Administration Pain Rated 7-10 IF NPO Ceftriaxone Sodium 2 gm/ 100 mls @ 200 mls/hr 06/14/22 19:00 06/14/22 18:01 Sodium Chloride IVPB 200 mls/hr Q24H MIGUEL ANGEL Administration Vancomycin HCl 1,500 mg in 500 mls @ 333.333 mls/hr 06/15/22 11:00 06/15/22 10:47 Vancomycin 1,500 Mg/D5w 500 Ml IVPB 333.33 mls/hr Q8H MIGUEL ANGEL Administration Ondansetron HCl 4 mg 06/14/22 08:29 Ondansetron Inj 4 Mg/2 Ml Vial IV PUSH ONCE PRN Nausea Oxycodone HCl 5 mg 06/14/22 10:54 06/15/22 11:01 Oxycodone Hcl (*Crx) 5 Mg Tab Ir PO 5 mg Q4H PRN Administration Pain Rated 4-10 Polyethylene Glycol 17 gm 06/15/22 09:00 06/15/22 08:31 Polyethylene Glycol 3350 17 Gm Powd.Pack PO 17 gm QAM MIGUEL ANGEL Administration Senna/Docusate Sodium 2 tab 06/14/22 17:00 06/15/22 08:31 Senna/Docusate Sodium Tablet PO 2 tab BID MIGUEL ANGEL Administration Radiology Results: ITS Impressions Elbow X-Ray 06/13/22 17:30 IMPRESSION: Very prominent dorsal soft tissue swelling, which may be due to olecranon bursitis or hematoma is very prominent dorsal olecranon process spur Labs Labs: Laboratory Results - last 24 hr 06/15/22 06/15/22 06/15/22 09:24 09:24 09:24 WBC 10.7 H RBC 5.01 Hgb 15.2 Hct 46.5 MCV 92.8 MCH 30.3 MCHC 32.7 RDW 13.6 Plt Count 296 MPV 8.7
--- NOTE | 2022-06-15 13:30 | PM.PNORT ---
Progress Note: A&P Assessment and Plan (1) Septic olecranon bursitis of left elbow: Code(s): M71.122 - Other infective bursitis, left elbow Status: Acute Assessment and Plan: Patient is now a little over 24 hours after incision and drainage of infected left olecranon bursa with an area of central necrosis. His dressing was changed and everything looks much better. The incision proximal and distal to the area of necrosis has edges that are viable and well approximated and the area of central necrosis which is about 8 or 9 mm in diameter has a base of healthy red appearing subcutaneous tissue and looks very viable. He has full range of motion of his elbow there is no surrounding erythema except for mild erythema of the skin overlying the bursa. I have asked the patient to stay for continued IV antibiotics until we have final susceptibilities. He is adamant that he will leave today. He points out the does not like it here. He has spent 17 years in and out of shelter and I think he feels the anxiety of having his freedom restricted. He advised me that he will not be staying home but he promises he will be completely compliant. He will avoid smoking he will avoid any use the left arm he will avoid any movement of the left elbow he will take both antibiotics he will call the office tomorrow to find out the latest culture results and hopefully will have susceptibilities by then. He will change dressing every 8 hours avoid putting any ointments in the open wound area and he is instructed to come to the emergency room immediately if it is after office hours and he feels that the infection is getting worse. He advised me that even though it says on his admission orders that he was on both doxycycline and Bactrim, he states he only picked up Bactrim from the pharmacy and he notes that he did not machine pecan picker the Bactrim from the pharmacy until 2 days after the prescription 2 days after he was in the emergency room having it aspirated here at [facility]. He went shortly after that visit to the ER but it was closed at [facility] and he did not return until 2 days later. He thinks this may have contributed to the fairly failure of the oral antibiotics to control his infection and he promises to be completely compliant as he does not want the infection a come back again as he realizes if it does he will have to be in the hospital for IV antibiotics for a more extended period of time. 30 minutes were spent in total care of this patient today. Subjective Subjective Date/Time Seen: 06/15/22 13:30 Objective Data Vital Signs Vital Signs: Vital Signs - 24 hr 06/14/22 20:35 06/14/22 20:39 06/15/22 06:00 Temperature 36.4 C L 36.1 C L Pulse Rate 90 102 H 89 Respiratory Rate 20 18 16 Blood Pressure 160/81 H 141/78 H Pulse Oximetry 92 98 96 Oxygen Delivery Room Air 06/15/22 08:00 Temperature Pulse Rate Respiratory Rate Blood Pressure Pulse Oximetry Oxygen Delivery Room Air Intake/Output Intake/Output: Intake & Output 06/12/22 06/13/22 06/14/22 06/15/22 23:59 23:59 23:59 23:59 Intake Total 100 3510 440 Balance 100 3510 440 Meds/Results Medications: Active Medications Generic Name Dose Route Start Last Admin Trade Name Freq PRN Reason Stop Dose Admin Acetaminophen 1,000 mg 06/14/22 12:00 06/15/22 11:02 Acetaminophen 500 Mg Tablet PO 1,000 mg Q6HR MIGUEL ANGEL Administration Enoxaparin Sodium 40 mg 06/14/22 21:00 06/14/22 20:55 Enoxaparin 40 Mg/0.4 Ml Syringe SUB-Q 40 mg DAILY@2100 MIGUEL ANGEL Administration Hydromorphone HCl 0.5 mg 06/13/22 18:33 06/14/22 13:23 Hydromorphone Hcl Inj (*Crx) 1 Mg/Ml Syr IV PUSH 0.5 mg Q4H PRN Administration Pain Rated 7-10 IF NPO Ceftriaxone Sodium 2 gm/ 100 mls @ 200 mls/hr 06/14/22 19:00 06/14/22 18:01 Sodium Chloride IVPB 200 mls/hr Q24H MIGUEL ANGEL Administration Vancomycin HCl 1,500 mg in 500 mls @ 333.333 mls/hr 06/15/22 11:00
== END 2022-06-15 13:52 | disposition left against medical advice (07) | DRG 317 ==
LOC: ANHED 19:59 → ANH3MEDSUR 20:28
PROVIDERS: Family Medicine; Orthopaedic Surgery; Physician Assistant; Admitting Provider Internal Medicine; Emergency Provider Nurse Practitioner Family; Visit Provider Chiropractor
PROC: 0MD40ZZ Extraction of Left Elbow Bursa and Ligament, Open Approach (ICD-10-PCS; principal; 2022-06-14 09:30)
DX: M71.122 Other infective bursitis, left elbow (principal); F17.210 Nicotine dependence, cigarettes, uncomplicated; Z85.71 Personal history of Hodgkin lymphoma
CPT/HCPCS: 20610; 36415; 73080; 80048; 80053; 80202; 83605; 85025; 85027; 85652; 86140; 87040; 87070; 87075; 87147; 87181; 87186; 87205; 96365; 96366; 96367; 96375; 99285; A9270; G0378; G0379; J0690; J0696; J1100; J1170; J1650; J2250; J2370; J2405; J2704; J3010; J3370; J7120

== ENCOUNTER 2022-07-24 17:08 | Emergency (ER) | payer BC, SELFPAY ==
--- NOTE | ~2022-07-24 | XR_ITS ---
EXAMINATION: XR elbow LT min 3V DATE: 07/24/2022 17:40 INDICATION: Left elbow swelling. TECHNIQUE: 4 views of left elbow were obtained. COMPARISON: Left elbow radiograph 06/13/22 FINDINGS: Bone alignment is normal. No fracture. There is mild elbow joint osteoarthritis. There is a prominent enthesophyte at olecranon. There is soft tissue swelling overlying olecranon, consistent w ith bursitis. No elbow joint effusion. IMPRESSION: 1. Olecranon bursitis. 2. Mild elbow joint osteoarthritis. Reviewed, dictated and finalized at location A.
[2022-07-24 17:10] VITALS: BP 153/68; PULSE 110; RESP 20; TEMP 37; O2SAT 97
--- NOTE | 2022-07-24 17:30 | ED.UPPEXIN ---
HPI - Extremity Injury (Upper) General Chief Complaint: Extremity Injury, Upper Stated Complaint: L. Elbow Time Seen by Provider: 07/24/22 17:23 History of Present Illness HPI narrative: Patient is a 47-year-old male here for evaluation of left elbow swelling and drainage for the past week and a half. Patient underwent an I&D in the OR for presumed septic bursitis at the end of June with Dr. Perez. He left the next day against recommendations of both orthopedist and the hospitalist but he was compliant with his outpatient antibiotics, which appears to be Keflex and Bactrim. Patient states that the swelling never really went down , but over the past week it has increased in size and redness. He has also been squeezing the area and states that cottage cheese -like discharge has been coming out. He denies any fevers, chills, nausea, vomiting, significant pain. Related Data Allergies Allergy/AdvReac Type Severity Reaction Status Date / Time No Known Allergies Allergy Unknown Verified 07/24/22 17:22 Review of Systems Review of Systems: Gen: Denies fevers or chills Eyes: Denies eye pain or visual change ENT: Denies congestion Respiratory: Denies shortness of breath or cough CV: Denies chest pain or palpitations GI: Denies abdominal pain nausea, emesis or diarrhea denies burning, urgency, frequency or hematuria Musculoskeletal: Reports left elbow swelling. Denies back pain or muscle pain Neuro: Denies numbness, tingling, weakness or focal weakness Skin: Denies rash Except as documented, all other systems reviewed and negative [facility] Past Medical History Medical History Cellulitis Hodgkin lymphoma Diagnosed at the age of 15 status post chemotherapy and radiation to the neck and chest. Tobacco dependence Surgical History Surgical History History of incision and drainage I&D of left thumb due to spider bite. History of lymph node biopsy History of tonsillectomy Family History Family History Other Family history non-contributory Social History Social History (Updated 06/14/22 @ 00:10 by Katy Ontiveros PA-C) Social History: Surrogate medical decision maker: Rosaura Raza, significant other. Code status: Full code. Smoking packs per day: 1 Smoking cigarettes per day: 20.0 Years smoked: 1 Smoking pack-years: 1.00 Smoking status: Current every day smoker Tobacco type: cigarettes Alcohol intake: current Drinks per week: 1 Substance use: current Substance use type: marijuana Other substance usage details: 1-2 use/day Last use: 06/06/2022 Additional living arrangements comments: Lives in [place] with significant other. Additional occupation/education comments: [employer] work. Gender identity (if verbalized by the patient): Male Sexual Orientation (if Verbalized by the Patient): Straight or Heterosexual Spiritual care concerns: No Exam Narrative: APPEARANCE: Well appearing, no pain in distress, well-nourished. Head: Normocephalic and atraumatic. EYES: PERRLA/EOMI, conjunctivae clear NOSE: No nasal drainage EARS: External ear normal in appearance THROAT: Oropharynx is clear. Mucous membranes are moist. NECK: Supple. No adenopathy, no masses. RESPIRATORY: Airway patent, respirations nonlabored. Clear to auscultation bilaterally, no rales, rhonchi, wheezing. CARDIOVASCULAR: Tachycardic. Regular rhythm without murmurs, rubs, or gallops. ABDOMINAL: Normoactive bowel sounds. Soft, nontender, nondistended. No rebound tenderness or guarding. MUSCULOSKELETAL: Patient has a 4 x 4 area of erythema and swelling overlying the left olecranon. He has full range of motion in his left upper extremity and reports no pain with passive or active range of motion. NEURO: Normal speech. No focal neurologic defici
[2022-07-24 18:00] LABS: Basophils Absolute Auto 0.1 K/mm3 (0.0-0.1); Basophils Percent Auto 0.6 % (0.2-1.2); Eosinophils Absolute Auto 0.1 K/mm3 (0-0.3); Eosinophils Percent Auto 1.1 % (0-4.4); Hematocrit 46.1 % (42.0-52.0); Hemoglobin 15.4 g/dL (14.0-18.0); Immature Granulocyte Absolute 0.03 K/mm3 (0.00-0.031); Immature Granulocyte Percent A 0.3 % (0-0.5); Lymphocytes Percent Auto 23.2 % (18.3-44.2); Mean Corpuscular HGB Conc 33.4 g/dl (32-36); Mean Corpuscular Hemoglobin 30.6 pg (26-34); Mean Corpuscular Volume 91.7 fl (80-100); Mean Platelet Volume 9.1 fl (7.4-10.4); Monocytes Absolute Auto 0.5 K/mm3 (0.1-0.6); Neutrophils Absolute Auto 6.2 K/mm3 (1.3-6.7); Neutrophils Percent Auto 68.8 % (45.5-73.1); Platelet Count Result 278 k/mm3 (150-375); Red Blood Count 5.03 M/mm3 (4.6-6.20); Red Cell Distribution Width 13.8 % (11.5-14.5); White Blood Count 9.1 K/mm3 (4.5-10.0)
[2022-07-24 18:08] LABS: Lactic Acid Reflex 1.2 mmol/L (0.7-2.0)
[2022-07-24 18:17] LABS: Anion Gap 11 mmol/L (8-16); Blood Urea Nitrogen 13 mg/dL (9-20); CRP 0.7 mg/dL (<1.0); Calcium 8.7 mg/dL (8.4-10.2); Carbon Dioxide 24 mmol/L (22-30); Chloride 104 mmol/L (98-107); Estimated CRCL calculation 103 ml/min; Estimated Glomerular Filt Rate > 60; Glucose 116 mg/dL (65-110); Potassium 4.1 mmol/L (3.4-5.0); Sodium 139 mmol/L (137-145)
[2022-07-24 18:38] LABS: Erythrocyte Sedimentation Rate 10 mm/hr (0-20)
[2022-07-24] MEDS: LIDOCAINE HCL 1% PF 30 ML VIAL 5 ML INFILTRATE (20:26)
[2022-07-24 21:53] VITALS: BP 150/74; PULSE 84; RESP 20; O2SAT 97
== END 2022-07-24 22:33 | disposition home or self-care (01) ==
PROVIDERS: Physician Assistant; Emergency Provider Emergency Medicine
DX: M70.22 Olecranon bursitis, left elbow (principal); Z85.71 Personal history of Hodgkin lymphoma; F17.210 Nicotine dependence, cigarettes, uncomplicated
CPT/HCPCS: 20605; 20610; 36415; 73080; 80048; 83605; 85025; 85652; 86140; 87205; 96365; 96366; 99284; J3370